=== PATIENT | male | born 1995 | race Caucasian/White ===

== ENCOUNTER 2017-02-17 19:49 | Emergency (ER) | payer OTHER ==
[~2017-02-17] VITALS: Ht 180.3 cm; Wt 77.1 kg
[2017-02-17 20:15] LABS: URINE BLOOD 2+ (Negative); URINE CLARITY CLEAR; URINE COLOR YELLOW; URINE GLUCOSE-RANDOM NEGATIVE (Negative); URINE KETONES TRACE (Negative); URINE LEUKOCYTES 2+ (Negative); URINE NITRITE NEGATIVE (Negative); URINE PROTEIN 3+ (Negative); URINE UROBILINOGEN 0.2 E.U./dl (0.2-1.0)
[2017-02-17 20:16] LABS: ICTOTEST (BILI CONFIRMATORY) Negative (Negative); URINE BILIRUBIN 1+ (Negative)
[2017-02-17 20:25] LABS: BACTERIA 1-9 Few /HPF (None Seen); CASTS None Seen /LPF (None Seen); CRYSTALS None Seen /LPF (None Seen); SQUAMOUS NONE SEEN /LPF (0-3); URINE RBC 3-10 Few /HPF (0-2); URINE WBC >25 Many /HPF (0-5)
[2017-02-17] MEDS ORDERED: CIPRO500 MG PO (20:46)
[2017-02-17] MEDS ORDERED: PYRIDIUM100 M1 PO (20:46)
[2017-02-17 21:00] VITALS: BP 122/74
== END 2017-02-17 21:01 | disposition home or self-care (01) ==
LOC: M.ERS 19:49
PROVIDERS: Nurse Practitioner Family
DX: N30.01 Acute cystitis with hematuria (principal)